=== PATIENT | female | born 1970 | race African-American/Black ===

== ENCOUNTER 2018-07-19 05:20 | Emergency (ER) | payer MEDICAID ==
[~2018-07-19] VITALS: Ht 170.2 cm; Wt 55.0 kg
[2018-07-19] MEDS ORDERED: SODIUM CHLORIDE 0.9% 1,000 ML IV ONE (06:33)
[2018-07-19] MEDS ORDERED: MORPHINE SULFATE 4 MG/ML CPJ (NOT FOR IM USE) IV STA (06:33)
[2018-07-19 07:11] LABS: CLARITY URINE CLOUDY (CLEAR); COLOR URINE YELLOW (YELLOW); KETONES URINE NEGATIVE (NEGATIVE); LEUKOCYTE ESTERASE URINE TRACE (NEGATIVE); NITRITE URINE NEGATIVE (NEGATIVE); OCCULT BLOOD URINE NEGATIVE (NEGATIVE); PROTEIN URINE NEGATIVE (NEGATIVE); SPECIFIC GRAVITY URINE 1.009 (1.005-1.030); UROBILINOGEN URINE 0.2 E.U./dL (0.2-1.0)
[2018-07-19] MEDS ORDERED: MORPHINE SULFATE 4 MG/ML CPJ (NOT FOR IM USE) IV ONE (08:15)
[2018-07-19 09:48] VITALS: BP 138/81
== END 2018-07-19 11:24 | disposition home or self-care (01) ==
LOC: ER 05:20
DX: G89.29 Other chronic pain (principal); M54.5 Low back pain; Z76.5 Malingerer [conscious simulation]; E03.9 Hypothyroidism, unspecified; I95.9 Hypotension, unspecified; Q05.9 Spina bifida, unspecified; Z88.8 Allergy status to other drugs, medicaments and biological substances; Z88.9 Allergy status to unspecified drugs, medicaments and biological substances; Z87.891 Personal history of nicotine dependence
CPT/HCPCS: 81003; 81025; 96361; 96374; 96376; 99283; J2270; J7030; Z7610

== ENCOUNTER 2018-09-28 05:56 | Emergency (ER) | payer MEDICAID ==
[~2018-09-28] VITALS: Ht 170.2 cm; Wt 57.0 kg
[2018-09-28] MEDS ORDERED: TRAMADOL 50MG TABLET PO ONE (06:30)
[2018-09-28] MEDS ORDERED: CYCLOBENZAPRINE 10MG TABLET PO ONE (06:30)
[2018-09-28 07:27] LABS: CLARITY URINE CLEAR (CLEAR); COLOR URINE DARK YELLOW (YELLOW); KETONES URINE TRACE (NEGATIVE); LEUKOCYTE ESTERASE URINE 2+ (NEGATIVE); NITRITE URINE NEGATIVE (NEGATIVE); OCCULT BLOOD URINE NEGATIVE (NEGATIVE); PROTEIN URINE NEGATIVE (NEGATIVE)
[2018-09-28] MEDS ORDERED: HYDROCODONE/ACETAMINOPHEN 5/325MG TABLET PO ONE (07:30)
[2018-09-28 07:41] LABS: *AMPHETAMINES SCREEN URINE NEGATIVE (NEGATIVE); *BARBITURATES SCREEN URINE NEGATIVE (NEGATIVE); *BENZODIAZEPINES SCREEN URINE NEGATIVE (NEGATIVE)
[2018-09-28 07:42] LABS: *COCAINE SCREEN URINE NEGATIVE (NEGATIVE); CANNABINOID URINE SCREEN NEGATIVE (NEGATIVE); METHADONE URINE SCREEN NEGATIVE (NEGATIVE); OPIATES URINE SCREEN NEGATIVE (NEGATIVE); PHENCYCLIDINE URINE SCREEN NEGATIVE (NEGATIVE)
[2018-09-28] MEDS ORDERED: AMLODIPINE 10MG TABLET PO ONE (07:45)
[2018-09-28] MEDS ORDERED: ATENOLOL 100 MG TABLET PO ONE (07:45)
[2018-09-28 08:43] VITALS: BP 98/56
== END 2018-09-28 08:53 | disposition home or self-care (01) ==
LOC: ER 05:56
DX: G89.29 Other chronic pain (principal); M46.82 Other specified inflammatory spondylopathies, cervical region; N39.0 Urinary tract infection, site not specified; M25.511 Pain in right shoulder; M54.6 Pain in thoracic spine; Z90.89 Acquired absence of other organs; Z98.890 Other specified postprocedural states; Z88.8 Allergy status to other drugs, medicaments and biological substances
CPT/HCPCS: 73030; 80305; 81025; 87077; 99284

== ENCOUNTER 2018-11-16 10:54 | Emergency (ER) | payer MEDICAID ==
[~2018-11-16] VITALS: Ht 170.2 cm; Wt 52.0 kg
[2018-11-16] MEDS ORDERED: ASPIRIN 81MG TABLET PO ONE (13:30)
[2018-11-16 14:52] LABS: BASOPHILS % 0.6 % (0.0-2.0); EOSINOPHILS % 2.4 % (0.0-5.0); HEMATOCRIT. 39.9 % (36.0-48.0); HEMOGLOBIN. 13.4 g/dL (12.0-16.0); LYMPHOCYTES % 36.4 % (20.0-50.0); MEAN CORPUSCULAR HEMOGLOBIN 31.2 pg (28.0-32.0); MEAN CORPUSCULAR VOLUME 92.9 fL (81.0-99.0); MEAN PLATELET VOLUME 7.6 fl (7.4-10.4); MONOCYTES % 7.6 % (2.0-8.0); PLATELET 218 x1000/uL (130-400); RED BLOOD CELL COUNT 4.29 mill/uL (4.2-5.4); RED CELL DISTRIBUTION WIDTH 13.7 % (11.6-14.6)
[2018-11-16 15:02] LABS: CHLORIDE 108 mEq/L (98-107)
[2018-11-16 15:03] LABS: D-DIMER < 0.19 mg/L FEU (<0.50); PARTIAL THROMBOPLASTIN TIME 27.1 sec (23.4-31.0); PROTHROMBIN TIME 10.8 sec (9.6-11.0)
[2018-11-16] MEDS ORDERED: TRAMADOL 50MG TABLET PO ONE (16:00)
[2018-11-16 23:25] VITALS: BP 106/73
== END 2018-11-16 23:59 | disposition home or self-care (01) ==
LOC: ER 10:54
DX: R07.89 Other chest pain (principal); I95.9 Hypotension, unspecified; Z98.890 Other specified postprocedural states; Z90.89 Acquired absence of other organs; E03.9 Hypothyroidism, unspecified; Z88.8 Allergy status to other drugs, medicaments and biological substances
CPT/HCPCS: 36415; 71045; 80053; 83880; 84484; 85025; 85379; 85610; 85730; 93005; 99284; Z7610

== ENCOUNTER 2020-08-28 09:58 | Emergency (ER) | payer MEDICAID ==
[~2020-08-28] VITALS: Ht 170.2 cm; Wt 60.0 kg
[2020-08-28 10:00] VITALS: BP 94/61
[2020-08-28] MEDS ORDERED: METR500T MT (12:55)
[2020-08-28] MEDS ORDERED: LEVO125T8 MT (12:55)
[2020-08-28] MEDS ORDERED: T3 PO (12:55)
== END 2020-08-28 13:29 | disposition home or self-care (01) ==
LOC: ER 09:58
DX: N76.0 Acute vaginitis (principal); I10 Essential (primary) hypertension; Z76.0 Encounter for issue of repeat prescription; Z88.8 Allergy status to other drugs, medicaments and biological substances; Z88.9 Allergy status to unspecified drugs, medicaments and biological substances; Z98.890 Other specified postprocedural states; Z90.89 Acquired absence of other organs; Z86.39 Personal history of other endocrine, nutritional and metabolic disease
CPT/HCPCS: 99281